=== PATIENT | female | born 2000 | race Two or more races ===

== ENCOUNTER 2023-03-10 08:55 | Emergency (ER) | payer MEDICAID ==
[~2023-03-10] VITALS: Ht 154.9 cm; Wt 85.1 kg
[2023-03-10 08:55] VITALS: BP 142/89; PULSE 86; RESP 16; TEMP 97.6; O2SAT 98
== END 2023-03-10 11:07 | disposition home or self-care (01) ==
LOC: ER 08:55
DX: H47.092 Other disorders of optic nerve, not elsewhere classified, left eye (principal); Z88.0 Allergy status to penicillin